=== PATIENT | male | born 1990 | race Two or more races ===

== ENCOUNTER 2023-08-25 20:57 | Emergency (ER) | payer SELFPAY ==
[~2023-08-25] VITALS: Ht 160 cm; Wt 95.0 kg
[2023-08-25 22:26] LABS: Basophils # (auto) 0 10 ^3/uL (0-0.2); Basophils % (auto) 0.5 % (0.0-2.0); Eosinophils # (auto) 0.1 10 ^3/uL (0-0.8); Eosinophils % (auto) 1.6 % (0.0-7.0); Hematocrit 45.8 % (41.0-53.0); Hemoglobin 15.8 g/dL (13.5-17.5); Lymphocytes # (auto) 2.6 10 ^3/uL (0.4-5.4); Lymphocytes % (auto) 30.6 % (10.0-50.0); Mean Corpuscular Hemoglobin 30.9 pg (28.0-32.0); Mean Corpuscular Hgb Conc. 34.5 g/dL (32.0-36.0); Mean Corpuscular Volume 89.6 fL (80.0-100.0); Monocytes # (auto) 0.7 10 ^3/uL (0-1.3); Monocytes % (auto) 8.4 % (0.0-12.0); Neutrophils % (auto) 58.9 % (37.0-80.0); Red Blood Cells 5.12 10^6/uL (4.5-5.90); Red Cell Distribution Width 13.2 % (11.8-14.3); White Blood Cell 8.4 10^3/uL (4.4-10.8)
[2023-08-25 22:42] LABS: Alanine Aminotransferase 74 U/L (7-40); Albumin 4.5 g/dL (3.2-4.8); Alkaline Phosphatase 99 U/L (46-116); Anion Gap 8 (5-15); Aspartate Aminotransferase 52 U/L (13-40); Bilirubin, Total 0.4 mg/dL (0.2-1.0); Blood Urea Nitrogen 10 mg/dL (9-23); Calcium 9.3 mg/dL (8.7-10.4); Carbon Dioxide 23 mmol/L (20-30); Chloride 106 mmol/L (98-107); Glucose 95 mg/dL (74-106); Lipase 56 U/L (12-53); Sodium 137 mmol/L (136-145)
[2023-08-26 02:47] LABS: Urine Bacteria NONE SEEN /hpf (None Seen); Urine Blood Negative /uL (Negative); Urine Clarity Clear (Clear); Urine Color Yellow (Yellow); Urine Protein, UAD Negative (Negative); Urine Specific Gravity 1.021 (1.001-1.035); Urine Urobilinogen Normal (Negative); Urine WBC <1 /hpf (0 - 3); Urine pH 5.5 (5.0-8.0)
[2023-08-26] MEDS ORDERED: SODIENE35 RE (03:16)
[2023-08-26] MEDS ORDERED: PEGSOL11 OR (03:16)
[2023-08-26] MEDS ORDERED: DICY10CA PO (03:16)
[2023-08-26 03:24] VITALS: BP 142/78; PULSE 78; RESP 18; TEMP 98.6; O2SAT 97
== END 2023-08-26 04:06 | disposition home or self-care (01) ==
LOC: ER 20:57
DX: K59.00 Constipation, unspecified (principal); R10.33 Periumbilical pain
CPT/HCPCS: 36415; 74176; 80053; 81001; 83690; 85025

== ENCOUNTER 2023-10-25 19:02 | Emergency (ER) | payer MEDICAID ==
[~2023-10-25] VITALS: Ht 160 cm; Wt 94.2 kg
[~2023-10-25 19:02] MED LIST: DICY10CA PO; PEGSOL11 OR; SODIENE35 RE
[2023-10-25 20:33] VITALS: BP 125/68; PULSE 72; RESP 18; O2SAT 97
[2023-10-25 21:41] LABS: Rapid Influenza A Negative (Negative)
[2023-10-25 21:42] LABS: COVID19 ANTIGEN SOFIA FIA NEGATIVE (NEGATIVE)
[2023-10-25 21:44] LABS: Rapid Influenza B Positive (Negative)
[2023-10-25] MEDS ORDERED: ACET500T58 PO (23:33)
[2023-10-25] MEDS ORDERED: OSEL75CA5 PO (23:33)
== END 2023-10-26 00:13 | disposition home or self-care (01) ==
LOC: ER 19:02
DX: J10.1 Influenza due to other identified influenza virus with other respiratory manifestations (principal); F17.210 Nicotine dependence, cigarettes, uncomplicated; Z20.822 Contact with and (suspected) exposure to COVID-19
CPT/HCPCS: 36415; 87426; 87804

== ENCOUNTER 2024-09-04 19:42 | Emergency (ER) | payer MEDICAID ==
[~2024-09-04] VITALS: Ht 160 cm; Wt 100.0 kg
[~2024-09-04 19:42] MED LIST changes: +ACET500T58 PO; +CLIN1CAP70 PO; +HYDR-4902 PO; +IBUP-1454 PO; +OSEL75CA5 PO
[2024-09-04 20:41] LABS: COVID19 ANTIGEN SOFIA FIA NEGATIVE (NEGATIVE); Rapid Influenza A Negative (Negative)
[2024-09-04 20:44] LABS: Rapid Influenza B Positive (Negative)
[2024-09-04] MEDS ORDERED: ACET500T58 PO (21:39)
[2024-09-04] MEDS ORDERED: PRED20TA2 PO (21:39)
--- NOTE | 2024-09-04 21:39 | ED.PDOC ---
History of Present Illness HPI Comments 34-year-old male presents to ER with complaints of flu-like symptoms x1 day. Patient reports he has been experiencing dry cough, congestion, intermittent body aches, chills and fever x1 day. Denies use of medications for current symptoms. Denies any current pain. Patient presents to ER ambulatory on arriva l, with steady gait, in no distress with vitals stable and notes he did experience one episode of nausea/vomiting today. Denies shortness of breath, chest pain, hemoptysis, sore throat, earache, headache, abdominal pain, known exposure to sick contacts, changes in urination/BM or any further symptoms/complaints Chief Complaint: Flu like Time Seen by MD: 20:44 Primary Care Provider: UNKNOWN Reviewed Notes: Nurses Notes, Medications, Allergies Information Source: Patient Past Medical History PAST MEDICAL HISTORY: Denies Surgical History: Denies all surgeries Family History Family History: Unknown Social History Smoker: Cigarettes, Less Than 1 Pack/Day Alcohol: Denies ETOH Use Drugs: Denies Drug Use Lives In: Home Constitutional: See HPI EENTM: See HPI Respiratory: See HPI Cardiovascular: No Symptoms Reported Gastrointestinal: See HPI Genitourinary: No Symptoms Reported Neurological: No Symptoms Reported Musculoskeletal: No Symptoms Reported Integumentary: No Symptoms Reported Allergic/Immunocompromised: others (UNKNOWN) Hematologic/Lymphatic: No Symptoms Reported Endocrine: No Symptoms Reported Psychiatric: No symptoms Reported Physical Exam General Appearance: No Apparent Distress, Obese HEENT: Normal ENT Inspection, PERRL/EOMI, Pharynx Normal, TMs Normal Neck: Full Range of Motion, Non-Tender, Normal Respiratory: Chest Non-Tender, Lungs Clear, No Accessory Muscle Use, No Respiratory Distress, Normal Breath Sounds Cardiovascular: No Murmur, No Gallop, Regular Rate/Rhythm Breast Exam: Deferred Gastrointestinal: Non Tender, No Pulsatile Mass, Soft Genitalia: Deferred Pelvic: Deferred Rectal: Deferred Extremities: Normal capillary refill, Normal range of motion Neurologic: Alert, business transformation analyst II-XII nml as Tested, No Motor Deficits, Normal Affect, Normal Mood, No Sensory Deficits Cerebellar Function: Normal Reflexes: Normal Skin: Dry, Normal Color, Warm Peripheral Pulses: 2+ Radial (R), 2+ Radial (L), 2+ Brachial (R), 2+ Brachial (L) Lymphatic: No Adenopathy Was a procedure done? Was a procedure done?: No Sedation Sedation?: No Fever Differential Dx Differential Diagnosis: Pneumonia, Sepsis, Pharyngitis, Other (COVID-19) X-Ray, Labs, Meds, VS Vital Signs Date Time Temp Pulse Resp B/P (MAP) Pulse Ox O2 Delivery O2 Flow Rate FiO2 09/04/24 19:57 98.4 99 19 125/79 (94) 96 Lab Test 09/04/24 19:55 Range/Units Influenza Type A Antigen Negative Negative Influenza Type B Antigen Positive Negative SARS-CoV-2 Antigen (Rapid) Negative NEGATIVE INFLUENZA B REVIEWED-POSITIVE INFLUENZA A REVIEWED-NEGATIVE CLIF REVIEWED-NEGATIVE SMOKING CESSATION DISCUSSED AND ADVISED PATIENT TOLERATING P.O. INTAKE WELL AND IN NO DISTRESS DURING ER VISIT/PRIOR TO DISCHARGE DIET EDUCATION DISCUSSED ADVISED TO FOLLOW UP WITH PCP IN 1-2 DAYS PATIENT VERBALIZED UNDERSTANDING AND AGREEABLE WITH CURRENT PLAN OF CARE ADVISED TO RETURN TO ER IMMEDIATELY IF SYMPTOMS WORSEN Time of 1ST Reevaluation: 21:12 Reevaluation 1ST: N/A Patient Education/Counseling: Diagnosis, Treatment, Prognosis, Need For Follow Up Family Education/Counseling: No Family Present Departure 1 Departure Time of Disposition: 21:32 Impression: Primary Impression: Influenza B Disposition: 01 HOME / SELF CARE / HOMELESS Condition: Stable e-Prescriptions Prednisone (Prednisone) 20 Mg Tab 20 MG PO BID for 5 Days, #10 TAB 0 Refills Prov: ZACK GOTTLIEB 09/04/24 Acetaminophen (Acetaminophen) 500 Mg Tab 500 MG PO Q4HPRN, #30 TAB 0 Refills Prov: ZACK GOTTLIEB 09/04/24 Oseltamivir Phosphate (Tamiflu) 75 Mg Cap 1 CAP PO BID for 5 Days, #10 CAP 0 Refills Prov: ZACK GOTTLIEB 09/04/24 Discharged With: Self Critical Care Note Critical Care Time?: No Stability Stability form required: No Heart Score Heart Score: Heart Score Response (Comments) Value History N/A 0 EKG N/A 0 Age N/A 0 Risk Factors N/A 0 Troponin N/A 0 Total 0 ZACK GOTTLIEB Sep 04, 2024 21:39
[2024-09-04 22:42] VITALS: BP 126/65; PULSE 98; RESP 19; TEMP 98; O2SAT 96
== END 2024-09-04 22:52 | disposition home or self-care (01) ==
LOC: ER 19:42
DX: J10.1 Influenza due to other identified influenza virus with other respiratory manifestations (principal); F17.210 Nicotine dependence, cigarettes, uncomplicated; Z20.822 Contact with and (suspected) exposure to COVID-19
CPT/HCPCS: 36415; 87426; 87804

== ENCOUNTER 2025-01-10 11:39 | Inpatient (IN) | payer OTHER, MEDICAID ==
[~2025-01-10] VITALS: Ht 160 cm; Wt 96.7 kg
[~2025-01-10 11:39] MED LIST changes: +PRED20TA2 PO
[2025-01-10 12:21] LABS: Basophils # (auto) 0.1 10 ^3/uL (0-0.2); Basophils % (auto) 0.8 % (0.0-2.0); Eosinophils # (auto) 0.1 10 ^3/uL (0-0.8); Eosinophils % (auto) 1.5 % (0.0-7.0); Hematocrit 48.5 % (41.0-53.0); Hemoglobin 16.9 g/dL (13.5-17.5); Lymphocytes # (auto) 2.2 10 ^3/uL (0.4-5.4); Lymphocytes % (auto) 33.6 % (10.0-50.0); Mean Corpuscular Hemoglobin 31.3 pg (28.0-32.0); Mean Corpuscular Hgb Conc. 34.8 g/dL (32.0-36.0); Mean Corpuscular Volume 89.7 fL (80.0-100.0); Monocytes # (auto) 0.4 10 ^3/uL (0-1.3); Monocytes % (auto) 5.9 % (0.0-12.0); Neutrophils # (auto) 3.8 10 ^3/uL (1.6-8.6); Neutrophils % (auto) 58.2 % (37.0-80.0); Nucleated Red Blood Cells % 0.2 %; Platelet Count (auto) 256 10^3/uL (140-450); Red Cell Distribution Width 13.2 % (11.8-14.3); White Blood Cell 6.5 10^3/uL (4.4-10.8)
--- NOTE | 2025-01-10 12:28 | ED.PDOC ---
GI ASSESSMENT HPI Comments HPI: 34 y/o M, presents to the ED for CC of abdominal pain. Patient states, he has been experiencing intermittent umbilical abdominal pain x2 weeks. Patient relays, pain to be cramping in sensation. Patient denies nausea, vomiting, diarrhea, fever, chills, or body-aches. No other symptoms or modifying factors present at this time. VITALS: Temp: BP: HR: RR: SPO2: Past medical history: DENIES ANY Past surgical history: DENIES ANY HPI: Poor Historian. REVIEW OF SYSTEMS: CONSTITUTIONAL: Denies acute: fever, diaphoresis, chills, generalized weakness. HEAD: Denies acute: headache, photophobia Eyes: Denies acute: Double vision, vision loss, eye pain, eye discharge. EARS: Denies acute: tinnitus, hearing loss, ear discharge, ear pain, THROAT: Denies acute: sore throat, swelling, difficulty swallowing , pain with swallowing, change in voice. NECK: Denies acute: neck pain, neck swelling, stiff neck. HEART: Denies acute : chest pain, palpitations, LUNGS: Denies acute: SOB, wheezing, cough, hemoptysis ABDOMEN: Denies acute: , Nausea, Vomiting, diarrhea, melena , hematemesis, hematochezia SKIN: Denies acute: rash, redness, lesions, itchiness. EXTREMITIES: Denies acute: calf pain, numbness, tingling, weakness, denies pain in extremity. Denies acute: Low back pain. Neuro: Denies acute: focal neurological deficit, motor or sensory focal neurological deficit, tremors, seizure like activity, confusion, dizziness, change in mental status, loss of bowel or bladder function, cauda equina like symptoms. : Denies acute: dysuria, hematuria, flank pain, increase in urinary frequency. PSYCH: Denies acute: hallucination, suicidal ideation, homicidal ideation. PHYSICAL EXAM: General: ---no-----acute distress, awake and alert. Head: normocephalic, atraumatic. Neck: supple, trachea is midline, no swelling. Throat: Normal phonation. Eyes:, no erythema, no purulent discharge, no proptosis, no icterus. Heart: regular rate, regular rhythm, no significant murmur appreciated. Lungs: no apparent respiratory distress, Able to speak in full sentences. No wheezing, no rhonchi, no crackles. No stridors Clear to auscultation bilaterally. Abdomen: Umbilical focal tender to palpation, non distended, soft, no guarding, no rebound, + bowel sounds. Patient has a very small reducible umbilical h ernia. Neuro: Awake, Alert, oriented to name, self, situation, follows commands GCS=15. Speech is normal. Skin: no petechia, no purpura, no cyanosis, non-pale, not jaundice. Lower extremities: --no - Pitting edema no deformity, no focal swelling, no calf TTP. Makes eye contact. moves all four extremities. Face: no apparent facial droop. Ambulating in the ED independently. ED COURSE: Chief Complaint: Abdominal Pain Time Seen by MD: 11:35 Primary Care Provider: UNKNOWN Reviewed Notes: Nurses Notes, Medications, Allergies Allergies: Coded Allergies: NO KNOWN ALLERGIES (Unverified , 08/25/23) Home Meds Active Scripts Prednisone (Prednisone) 20 Mg Tab, 20 MG PO BID for 5 Days, #10 TAB 0 Refills Prov:ZACK GOTTLIEB 09/04/24 Acetaminophen (Acetaminophen) 500 Mg Tab, 500 MG PO Q4HPRN, #30 TAB 0 Refills Prov:ZACK GOTTLIEB 09/04/24 Oseltamivir Phosphate (Tamiflu) 75 Mg Cap, 1 CAP PO BID for 5 Days, #10 CAP 0 Refills Prov:ZACK GOTTLIEB 09/04/24 Ibuprofen (Ibuprofen) 600 Mg Tab, 1 TAB PO Q6HPRN PRN, #20 TAB Prov:ERIC DOE Q CHIL[employer] SERVICE WORKER 01/20/24 Hydrocodone-Acetaminophen (Hydrocodone Bitartrate/AC 5-325 mg) 1 Tab Tab, 1 TAB PO Q6HPRN PRN, #8 TAB Needed for severe pain Prov:ERIC DOE Q CHILDR[employer] SERVICE WORKER 12/05/23 Clindamycin Hcl (Clindamycin Hcl) 300 Mg Cap, 1 CAP PO QID for 10 Days, #40 CAP Prov:ERIC DOE Q CHIL[employer] SERVICE WORKER 12/05/23 Acetaminophen (Acetaminophen) 500 Mg Tab, 500 MG PO Q6HPRN, #30 TAB 0 Refills Prov:ZACK GOTTLIEB 10/25/23 Oseltamivir Phosphate (Tamiflu) 75 Mg Cap, 1 CAP PO BID for 5 Days, #10 CAP 0 Refills Prov:ZACK GOTTLIEB PA 10/25/23 Dicyclomine Hcl (BENTYL CAPSULE) 10 Mg Cp, 2 CAP PO Q8HR, #15 CAP 0 Refills For abdominal cramping Prov:ERIC DOE Q CHIL[employer] SERVICE WORKER 08/26/23 Sodium Phosphates (FLEET ENEMA SIX PACK) Enema Carol, 1 EA RE ONCE, #1 EA 1 fleet enema per rectum only one use Prov:ERIC DOE Q CHIL[employer]S SERVICE WORKER 08/26/23 Peg [id number] Bicarb-Sod Ch (Golytely) Pineappl Trina, 250 ML OR ONCE, #250 ML take as directed Prov:ERIC DOE Q CHIL[employer] SERVICE WORKER 08/26/23 Information Source: Patient Mode of Arrival: Ambulatory Timing: Weeks Duration: Since onset Prehospital treatment: None Quality: Cramping Vomitus: None Stool: Normal Severity: Moderate Recent: None Recent Hx of: None Pain Location: Periumbilical Modifying Factors: Nothing Associated sign and symptoms: None Was a procedure done? Was a procedure done?: No GI differential Dx Differential Diagnosis: Other (DDX include but not limited to diverticulitis, colitis, gastroenteritis, acute abdomen, SBO, enteritis, constipation, volvulus, appendicitis, Gallbladder disease, choledocolithiasis, ascending cholangitis, pancreatitis, intraAbdominal mass/neoplasm, hepatitis, UTI, pylonephritis, kidney stone, aneurysm, dissection, Inflammatory bowel disease, gastroparesis, ischemic bowel.) X-Ray, Labs, Meds, VS Vital Signs Date Time Temp Pulse Resp B/P (MAP) Pulse Ox O2 Delivery O2 Flow Rate FiO2 01/10/25 14:30 97.7 68 18 141/68 (92) 98 97.7 01/10/25 13:07 62 20 96 Room Air* 0 21 01/10/25 13:07 97.7 62 20 115/75 (88) 96 97.7 01/10/25 11:55 98.0 85 20 115/65 (82) 100 98.0 Lab Test 01/10/25 12:52 01/10/25 12:44 01/10/25 12:08 Range/Units Troponin I High Sensitivity < 3 L < 3 L </=54 ng/L Urine Color Yellow Yellow Urine Clarity Clear Clear Urine pH 7.0 5.0-9.0 Urine Specific [place] 1.030 1.001-1.035 Urine Protein Trace H Negative Urine Ketones Negative Negative Urine Blood Negative Negative /uL Urine Nitrite Negative Negative Urine Bilirubin Negative Negative Urine Urobilinogen Normal Negative mg/dL Urine Leukocyte Esterase Negative Negative /uL Urine RBC 2 0 - 3 /hpf Urine Microscopic WBC 1 0-3 /HPF Urine Squamous Epithelial Cells None seen <5 /hpf Urine Bacteria None seen None Seen /hpf Urine Mucus Few None Seen Urine Glucose Normal Normal mg/dL White Blood Count 6.5 4.4-10.8 10^3/uL Red Blood Count 5.40 4.5-5.90 10^6/uL Hemoglobin 16.9 13.5-17.5 g/dL Hematocrit 48.5 41.0-53.0 % Mean Corpuscular Volume 89.7 80.0-100.0 fL Mean Corpuscular Hemoglobin 31.3 28.0-32.0 pg Mean Corpuscular Hemoglobin Concent 34.8 32.0-36.0 g/dL Red Cell Distribution Width 13.2 11.8-14.3 % Platelet Count 256 140-450 10^3/uL Mean Platelet Volume 7.3 6.9-10.8 fL Neutrophils (%) (Auto) 58.2 37.0-80.0 % Lymphocytes (%) (Auto) 33.6 10.0-50.0 % Monocytes (%) (Auto) 5.9 0.0-12.0 % Eosinophils (%) (Auto) 1.5 0.0-7.0 % Basophils (%) (Auto) 0.8 0.0-2.0 % Neutrophils # (Auto) 3.8 1.6-8.6 10 ^3/uL Lymphocytes # (Auto) 2.2 0.4-5.4 10 ^3/uL Monocytes # (Auto) 0.4 0-1.3 10 ^3/uL Eosinophils # (Auto) 0.1 0-0.8 10 ^3/uL Basophils # (Auto) 0.1 0-0.2 10 ^3/uL Nucleated Red Blood Cells 0.2 % Sodium Level 138 136-145 mmol/L Potassium Level 4.4 3.5-5.1 mmol/L Chloride Level 108 H 98-107 mmol/L Carbon Dioxide Level 24 20-31 mmol/L Anion Gap 6 5-15 Blood Urea Nitrogen 14 9-23 mg/dL Creatinine 0.84 0.700-1.30 mg/dL Glomerular Filtration Rate Calc 118 >90 mL/min BUN/Creatinine Ratio 16.7 10.0-20.0 Serum Glucose 79 74-106 mg/dL Lactic Acid Level 1.0 0.4-2.0 mmol/L Calcium Level 9.6 8.7-10.4 mg/dL Total Bilirubin 0.5 0.2-1.0 mg/dL Aspartate Amino Transferase (AST) 24 13-40 U/L Alanine Aminotransferase (ALT) 72 H 7-40 U/L Alkaline Phosphatase 102 46-116 U/L Total Protein 7.5 5.7-8.2 g/dL Albumin 4.7 3.2-4.8 g/dL Lipase 401 H 12-53 U/L Hepatitis B Surface Antibody Pending Hepatitis C Antibody Pending [place] [address] Ph: [phone] DIAGNOSTIC IMAGING Diagnostic Imaging Report : [id number] Signed PATIENT: KEANU GREEN ACCT: [id number] UNIT: [id number] : 1990 LOC: ER ROOM / BED: / AGE / SEX: 34 / M ADM STATUS: REG ER SERVICE 1158 ORDERING PHYSICIAN: LESTER CR DO PROCEDURE(s): ABPL - CT AB PEL WO CON-NO ORAL OR IV REASON: umbilical pain ORDER NUMBER(s): [id number], ACCESSION NUMBER(s): [id number] Exam: CT CT AB PEL WO CON-NO ORAL OR IV History: umbilical pain Comparison Study: CT CT AB PEL WO CON-NO ORAL OR IV on DOS: 08/25/23 Technique: Multidetector spiral CT of the abdomen and pelvis was performed from lung bases to pubic symphysis. Imaging was performed without IV contrast. Axial, coronal and sagittal multiplanar reformats were obtained from the axial data set by the technologist. Radiation dose : Abdomen/Pelvis: CTDIvol 20 mGy, DLP 1060 mGy*cm. Findings: Evaluation of solid organs is limited due to lack of intravenous contrast use. Lung Bases: No acute or significant lung base finding. Normal heart size. No pleural or pericardial effusion. Liver: The liver is normal in size. No focal lesions. Gallbladder and biliary Tree: Unremarkable Spleen: Unremarkable Pancreas: The pancreas is grossly normal in appearance. Adrenal Glands: Unremarkable Kidneys: Kidneys are grossly normal without calculi or hydronephrosis. Bladder: Grossly unremarkable for degree of distention. Bowel: The stomach is grossly normal in appearance. Small bowel and colon are normal in caliber and distribution. Normal appendix is visualized in the right lower quadrant without findings of appendicitis. Ascites: Absent Lymphadenopathy: No mesenteric, retroperitoneal or periportal lymphadenopathy. Abdominal wall and Mesentery: Unremarkable. Vasculature: The visualized abdominal aorta is normal in size and caliber. Evaluation of abdominal and pelvic vessels is limited due to lack of intravenous contrast. Pelvic Organs: Unremarkable Musculoskeletal: No aggressive focal bony lesions, acute fractures or dislocation. IMPRESSION: 1. No acute abdominal or pelvic findings. Radiation optimization: All CT scans at this facility use at least one of these dose optimization techniques: Automated exposure control mA and/or kV adjustment per patient size (includes targeted exams where dose is matched to clinical indication) or iterative reconstruction. HS:Y ATED BY: CAMRON FITCH MD DICTATED DATE/TIME: 01/10/251239 SIGNED BY: CAMRON FITCH MD SIGNED DATE/TIME: 01/10/251239 CC: Time of 1ST Reevaluation: 12:05 Reevaluation 1ST: Unchanged Time of 2ND Reevaluation: 14:07 (The case was discussed with the admitting team (HPI, physical exam, labs and diagnostic tests that were available at the time of disposition, ED course, treatment plan) on the phone. They agreed to admit the patient to their service and assume care of this patient from this point forward. --- Liv) Reevaluation 2ND: Unchanged Patient Education/Counseling: Diagnosis, Treatment Family Education/Counseling: Other Comments Patient presented with the above HPI.---abdominal pain---workup was initiated. patient was found with the above mentioned diagnosis. the following medications were ordered: please refer to order lists of meds and tests obtained by myself Dr. Cr. Patient ED course and VS have been stabilized. Patient has been reassessed in the ED and remained in a stable condition. Pertinent incidental findings were discussed with the patient and/or family. Patient/family voices understanding and is agreeable with plan. Patient has been observed in the ED adequate length of time to insure improvement/stability. Escalation of care considered: Consideration of escalation to observation or admission Patient was ADMITTED to the medicine team for further evaluation and treatment of their presentation. General surgeon Dr. Caballero called later because the admitting team consulted him. I discussed the case with him on the phone. All the reports of any imaging studies that were ordered by myself were reviewed by myself. Departure 1 Departure Time of Disposition: 13:41 Impression: Primary Impression: Acute pancreatitis Additional Impression: Umbilical hernia Disposition: ADMITTED INPATIENT Admit to: Tele Condition: Guarded Additional Instructions: [place] [address] Ph: [phone] DIAGNOSTIC IMAGING Diagnostic Imaging Report : [id number] Signed PATIENT: KEANU GREEN ACCT: [id number] UNIT: [id number] : 1990 LOC: ER ROOM / BED: / AGE / SEX: 34 / M ADM STATUS: REG ER SERVICE 1158 ORDERING PHYSICIAN: LESTER CR DO PROCEDURE(s): ABPL - CT AB PEL WO CON-NO ORAL OR IV REASON: umbilical pain ORDER NUMBER(s): [id number], ACCESSION NUMBER(s): [id number] Exam: CT CT AB PEL WO CON-NO ORAL OR IV History: umbilical pain Comparison Study: CT CT AB PEL WO CON-NO ORAL OR IV on DOS: 08/25/23 Technique: Multidetector spiral CT of the abdomen and pelvis was performed from lung bases to pubic symphysis. Imaging was performed without IV contrast. Axial, coronal and sagittal multiplanar reformats were obtained from the axial data set by the technologist. Radiation dose : Abdomen/Pelvis: CTDIvol 20 mGy, DLP 1060 mGy*cm. Findings: Evaluation of solid organs is limited due to lack of intravenous contrast use. Lung Bases: No acute or significant lung base finding. Normal heart size. No pleural or pericardial effusion. Liver: The liver is normal in size. No focal lesions. Gallbladder and biliary Tree: Unremarkable Spleen: Unremarkable Pancreas: The pancreas is grossly normal in appearance. Adrenal Glands: Unremarkable Kidneys: Kidneys are grossly normal without calculi or hydronephrosis. Bladder: Grossly unremarkable for degree of distention. Bowel: The stomach is grossly normal in appearance. Small bowel and colon are normal in caliber and distribution. Normal appendix is visualized in the right lower quadrant without findings of appendicitis. Ascites: Absent Lymphadenopathy: No mesenteric, retroperitoneal or periportal lymphadenopathy. Abdominal wall and Mesentery: Unremarkable. Vasculature: The visualized abdominal aorta is normal in size and caliber. Evaluation of abdominal and pelvic vessels is limited due to lack of intravenous contrast. Pelvic Organs: Unremarkable Musculoskeletal: No aggressive focal bony lesions, acute fractures or dislocation. IMPRESSION: 1. No acute abdominal or pelvic findings. Radiation optimization: All CT scans at this facility use at least one of these dose optimization techniques: Automated exposure control mA and/or kV adjustment per patient size (includes targeted exams where dose is matched to clinical indication) or iterative reconstruction. HS:Y ATED BY: CAMRON FITCH MD DICTATED DATE/TIME: 01/10/25 1240 SIGNED BY: CAMRON FITCH MD SIGNED DATE/TIME: 01/10/25 1240 CC: Discharged With: Self Critical Care Note Critical Care Time?: No Heart Score Heart Score: Heart Score Response (Comments) Value History N/A 0 EKG N/A 0 Age N/A 0 Risk Factors N/A 0 Troponin N/A 0 Total 0 I personally scribed for LESTER CR DO ([email or web address]) on 01/10/25 at 12:28. El ectronically submitted by Gifty Parra ([email or web address]). I personally scribed for LESTER CR DO ([email or web address]) on 01/10/25 at 13:04. Electro nically submitted by Gifty Parra ([email or web address]). LESTER CR DO Jan 10, 2025 12:28
[2025-01-10 12:41] LABS: Albumin 4.7 g/dL (3.2-4.8); Alkaline Phosphatase 102 U/L (46-116); Anion Gap 6 (5-15); Aspartate Aminotransferase 24 U/L (13-40); BUN/Creatinine Ratio 16.7 (10.0-20.0); Bilirubin, Total 0.5 mg/dL (0.2-1.0); Blood Urea Nitrogen 14 mg/dL (9-23); Calcium 9.6 mg/dL (8.7-10.4); Carbon Dioxide 24 mmol/L (20-31); Glucose 79 mg/dL (74-106); Potassium 4.4 mmol/L (3.5-5.1); Sodium 138 mmol/L (136-145); Total Protein 7.5 g/dL (5.7-8.2)
--- NOTE | 2025-01-10 12:42 | DVH ---
Exam: CT CT AB PEL WO CON-NO ORAL OR IV History: umbilical pain Comparison Study: CT CT AB PEL WO CON-NO ORAL OR IV on DOS: 08/25/23 Technique: Multidetector spiral CT of the abdomen and pelvis was performed from lung bases to pubic symphysis. Imaging was performed without IV contrast. Axial, coronal and sagittal multiplanar reform ats were obtained from the axial data set by the technologist. Radiation dose : Abdomen/Pelvis: CTDIvol 20 mGy, DLP 1060 mGy*cm. Findings: Evaluation of solid organs is limited due to lack of intravenous contrast use. Lung Bases: No acute or significant lung base finding. Normal heart size. No pleural or pericardial effusion. Liver: The liver is normal in size. No focal lesions. Gallbladder and biliary Tree: Unremarkable Spleen: Unremarkable Pancreas: The pancreas is grossly normal in appearance. Adrenal Glands: Unremarkable Kidneys: Kidneys are grossly normal without calculi or hydronephrosis. Bladder: Grossly unremarkable for degree of distention. Bowel: The stomach is grossly normal in appearance. Small bowel and colon are normal in caliber and d istribution. Normal appendix is visualized in the right lower quadrant without findings of appendicit is. Ascites: Absent Lymphadenopathy: No mesenteric, retroperitoneal or periportal lymphadenopathy. Abdominal wall and Mesentery: Unremarkable. Vasculature: The visualized abdominal aorta is normal in size and caliber. Evaluation of abdominal a nd pelvic vessels is limited due to lack of intravenous contrast. Pelvic Organs: Unremarkable Musculoskeletal: No aggressive focal bony lesions, acute fractures or dislocation. IMPRESSION: 1. No acute abdominal or pelvic findings. Radiation optimization: All CT scans at this facility use at least one of these dose optimization nathan hniques: Automated exposure control mA and/or kV adjustment per patient size (includes targeted exams where dose is matched to clinical indication) or iterative reconstruction. HS:Y
[2025-01-10 13:04] LABS: Urine Bacteria None Seen /hpf (None Seen)
[2025-01-10 13:07] VITALS: PULSE 62; RESP 20; O2SAT 96
[2025-01-10 13:22] LABS: Alanine Aminotransferase 72 U/L (7-40); Chloride 108 mmol/L (98-107); Lipase 401 U/L (12-53)
[2025-01-10 13:26] LABS: Urine Blood Negative /uL (Negative); Urine Clarity Clear (Clear); Urine Color Yellow (Yellow); Urine Mucus FEW (None Seen); Urine Protein, UAD TRACE (Negative); Urine Squamous Epithelial Cell None Seen /hpf (<5); Urine Urobilinogen Normal (Negative); Urine WBC 1 /HPF (0-3)
[2025-01-10] MEDS ORDERED: ACETAMINOPHEN 325 MG TAB PO PRN (15:30)
[2025-01-10] MEDS ORDERED: ONDANSETRON HCL 4 MG/2 ML VIAL IV PRN (15:30)
[2025-01-10] MEDS ORDERED: HYDROcodone-ACET 5/325MG TAB PO PRN (15:30)
[2025-01-10] MEDS ORDERED: MORPHINE SULFATE INJ 2 MG/ml SYRG IV PRN (15:30)
--- NOTE | 2025-01-10 15:30 | DVHHP2 ---
History of Present Illness Reason for Visit: Abdominal pain History of Present Illness 34-year-old male with a no significant past medical history initially presented to hospital with the abdominal pain. Patient complaining of umbilical pain as well. Patient's does complaining of nausea but denies any vomiting. In the ER patient was found to have elevated lipase eventually admission was recommended. Patient denies any fevers chills , vomiting diarrhea hematemesis hematochezia melena dysuria hematuria Smoke: No ALCOHOL: none Review of Systems Review of Systems Twelve review of system are negative besides mentioned above. Allergies: Coded Allergies: NO KNOWN ALLERGIES (Unverified , 08/25/23) Medications Current Medications Medications Dose Ordered Sig/Epifanio Route Start Time Stop Time Status Last Admin Dose Admin Sodium Chloride 1,000 ml @ 60 mls/hr [id number] IV 01/10/25 15:30 UNV Acetaminophen/ Hydrocodone Bitart 1 tab Q4HP PRN PO 01/10/25 15:30 UNV Ondansetron HCl 4 mg Q4HP PRN IV 01/10/25 15:30 UNV Acetaminophen 650 mg Q6HP PRN PO 01/10/25 15:30 UNV Morphine Sulfate 2 mg Q4HPRN PRN IV 01/10/25 15:30 UNV Exam Vital Signs Vital Signs Date Time Temp Pulse Resp B/P (MAP) Pulse Ox O2 Delivery O2 Flow Rate FiO2 01/10/25 14:30 97.7 68 18 141/68 (92) 98 97.7 01/10/25 13:07 Room Air* 0 21 Exam HEENT pupils are reactive Neck is supple CV is S1-S2 regular rate and rhythm Respiratory are clear GI positive bowel sound, soft mildly tender in umbilical region no guarding no rigidity. Extremity no edema MANAGER SAS no motor deficit Labs/Xrays Labs Test 01/10/25 12:52 01/10/25 12:44 01/10/25 12:08 Range/Units Troponin I High Sensitivity < 3 L </=54 ng/L Urine Color Yellow Yellow Urine Clarity Clear Clear Urine pH 7.0 5.0-9.0 Urine Specific [place] 1.030 1.001-1.035 Urine Protein Trace H Negative Urine Ketones Negative Negative Urine Blood Negative Negative /uL Urine Nitrite Negative Negative Urine Bilirubin Negative Negative Urine Urobilinogen Normal Negative mg/dL Urine Leukocyte Esterase Negative Negative /uL Urine RBC 2 0 - 3 /hpf Urine Microscopic WBC 1 0-3 /HPF Urine Squamous Epithelial Cells None seen <5 /hpf Urine Bacteria None seen None Seen /hpf Urine Mucus Few None Seen Urine Glucose Normal Normal mg/dL White Blood Count 6.5 4.4-10.8 10^3/uL Red Blood Count 5.40 4.5-5.90 10^6/uL Hemoglobin 16.9 13.5-17.5 g/dL Hematocrit 48.5 41.0-53.0 % Mean Corpuscular Volume 89.7 80.0-100.0 fL Mean Corpuscular Hemoglobin 31.3 28.0-32.0 pg Mean Corpuscular Hemoglobin Concent 34.8 32.0-36.0 g/dL Red Cell Distribution Width 13.2 11.8-14.3 % Platelet Count 256 140-450 10^3/uL Mean Platelet Volume 7.3 6.9-10.8 fL Neutrophils (%) (Auto) 58.2 37.0-80.0 % Lymphocytes (%) (Auto) 33.6 10.0-50.0 % Monocytes (%) (Auto) 5.9 0.0-12.0 % Eosinophils (%) (Auto) 1.5 0.0-7.0 % Basophils (%) (Auto) 0.8 0.0-2.0 % Neutrophils # (Auto) 3.8 1.6-8.6 10 ^3/uL Lymphocytes # (Auto) 2.2 0.4-5.4 10 ^3/uL Monocytes # (Auto) 0.4 0-1.3 10 ^3/uL Eosinophils # (Auto) 0.1 0-0.8 10 ^3/uL Basophils # (Auto) 0.1 0-0.2 10 ^3/uL Nucleated Red Blood Cells 0.2 % Sodium Level 138 136-145 mmol/L Potassium Level 4.4 3.5-5.1 mmol/L Chloride Level 108 H 98-107 mmol/L Carbon Dioxide Level 24 20-31 mmol/L Anion Gap 6 5-15 Blood Urea Nitrogen 14 9-23 mg/dL Creatinine 0.84 0.700-1.30 mg/dL Glomerular Filtration Rate Calc 118 >90 mL/min BUN/Creatinine Ratio 16.7 10.0-20.0 Serum Glucose 79 74-106 mg/dL Lactic Acid Level 1.0 0.4-2.0 mmol/L Calcium Level 9.6 8.7-10.4 mg/dL Total Bilirubin 0.5 0.2-1.0 mg/dL Aspartate Amino Transferase (AST) 24 13-40 U/L Alanine Aminotransferase (ALT) 72 H 7-40 U/L Alkaline Phosphatase 102 46-116 U/L Total Protein 7.5 5.7-8.2 g/dL Albumin 4.7 3.2-4.8 g/dL Lipase 401 H 12-53 U/L Assessment/Plan Assessment/Plan 34-year-old male initially presented to the hospital with the abdominal pain as well as umbilical pain found to have 1. Acute pancreatitis 2. Umbilical pain rule out umbilical hernia 3. Previous history of alcoholism quit 16 months ago -admit to med surge, IV fluids, repeat amylase lipase in a.m. -start clear liquid diet if tolerated -general surgery consultation for possible umbilical hernia. Plan discussed with: Patient My Orders Orders - ELIOT SMALL MD Procedure Category Date Status Time Admit ADMIT 01/10/25 Transmitted 15:21 Code Status CODE 01/10/25 Transmitted 15:21 Sodium Chloride 0.9% PHA 01/10/25 Logged 15:30 Hydrocodone-Acet PHA 01/10/25 Logged 5/325mg Tab ([place] 15:30 Ondansetron Hcl PHA 01/10/25 Logged (Zofran) 15:30 Comprehensive LAB 01/11/25 Verified Metabolic Panel 04:00 Condition: Stable ISELA 01/10/25 In Process 15:21 Acetaminophen Tablet PHA 01/10/25 Logged (Tylenol Tablet) 15:30 Clear Liq Diet DIET 01/10/25 Transmitted Dinner Morphine Sulfate PHA 01/10/25 Logged Injection 15:30 Amylase LAB 01/11/25 Verified 04:00 Lipase LAB 01/11/25 Verified 04:00 Date of Service: Jan 10, 2025 Billing Provider: ELIOT SMALL MD Common Visit Codes: NOT BILLABLE ELIOT SMALL MD Jan 10, 2025 15:30
[2025-01-10] MEDS: SODIUM CHLORIDE 0.9% 1,000 ML IV SCH (17:25)
[2025-01-10 17:47] VITALS: BP 94/58; PULSE 73; RESP 18; TEMP 97.8; O2SAT 100
[2025-01-10 21:00] VITALS: BP 106/55; PULSE 72; RESP 17; TEMP 97.4; O2SAT 99
[2025-01-11 01:00] VITALS: BP 101/54; PULSE 62; RESP 17; TEMP 97.7; O2SAT 95
[2025-01-11 04:59] VITALS: BP 100/50; PULSE 82; RESP 17; TEMP 97.6; O2SAT 97
[2025-01-11 07:02] LABS: Alkaline Phosphatase 93 U/L (46-116); Anion Gap 6 (5-15); Aspartate Aminotransferase 24 U/L (13-40); BUN/Creatinine Ratio 14.6 (10.0-20.0); Bilirubin, Total 0.9 mg/dL (0.2-1.0); Blood Urea Nitrogen 15 mg/dL (9-23); Carbon Dioxide 25 mmol/L (20-31); Glucose 86 mg/dL (74-106); Lipase 40 U/L (12-53); Potassium 4.2 mmol/L (3.5-5.1); Sodium 139 mmol/L (136-145); Total Protein 6.5 g/dL (5.7-8.2)
[2025-01-11 07:04] LABS: Alanine Aminotransferase 67 U/L (7-40); Chloride 108 mmol/L (98-107)
[2025-01-11 09:00] VITALS: BP 101/58; PULSE 81; RESP 18; TEMP 98.7; O2SAT 96
[2025-01-11 11:17] LABS: Hepatitis B Surface Antibody Positive (Negative); Hepatitis C Antibody Positive (Negative)
--- NOTE | 2025-01-11 11:34 | DVHINCON2 ---
Date of service: Jan 11, 2025 Family History: Patient reports no known family medical history. Allergies: Coded Allergies: NO KNOWN ALLERGIES (Unverified , 08/25/23) Home Meds Active Scripts Prednisone (Prednisone) 20 Mg Tab, 20 MG PO BID for 5 Days, #10 TAB 0 Refills Prov:ZACK GOTTLIEB 09/04/24 Acetaminophen (Acetaminophen) 500 Mg Tab, 500 MG PO Q4HPRN, #30 TAB 0 Refills Prov:ZACK GOTTLIEB 09/04/24 Oseltamivir Phosphate (Tamiflu) 75 Mg Cap, 1 CAP PO BID for 5 Days, #10 CAP 0 Refills Prov:ZACK GOTTLIEB 09/04/24 Ibuprofen (Ibuprofen) 600 Mg Tab, 1 TAB PO Q6HPRN PRN, #20 TAB Prov:ERIC DOE WARPING MACHINE OPERATOR 01/20/24 Hydrocodone-Acetaminophen (Hydrocodone Bitartrate/AC 5-325 mg) 1 Tab Tab, 1 TAB PO Q6HPRN PRN, #8 TAB Needed for severe pain Prov:ERIC DOE WARPING MACHINE OPERATOR 12/05/23 Clindamycin Hcl (Clindamycin Hcl) 300 Mg Cap, 1 CAP PO QID for 10 Days, #40 CAP Prov:NADERHENRIQUEBRITTNEY Daugherty WARPING MACHINE OPERATOR 12/05/23 Acetaminophen (Acetaminophen) 500 Mg Tab, 500 MG PO Q6HPRN, #30 TAB 0 Refills Prov:ZACK GOTTLIEB 10/25/23 Oseltamivir Phosphate (Tamiflu) 75 Mg Cap, 1 CAP PO BID for 5 Days, #10 CAP 0 Refills Prov:AZCK GOTTLIEB 10/25/23 Dicyclomine Hcl (BENTYL CAPSULE) 10 Mg Cp, 2 CAP PO Q8HR, #15 CAP 0 Refills For abdominal cramping Prov:NADERHENRIQUEBRITTNEY Daugherty WARPING MACHINE OPERATOR 08/26/23 Sodium Phosphates (FLEET ENEMA SIX PACK) Enema Carol, 1 EA RE ONCE, #1 EA 1 fleet enema per rectum only one use Prov:NADERERIC Willow WARPING MACHINE OPERATOR 08/26/23 Peg [id number] Bicarb-Sod Ch (Golytely) Pineappl Trina, 250 ML OR ONCE, #250 ML take as directed Prov:NADERHENRIQUEBRITTNEY Daugherty WARPING MACHINE OPERATOR 08/26/23 Current Medications Current Medications Medications (Trade) Dose Ordered Sig/Epifanio Route PRN Reason Start Time Stop Time Status Last Admin Sodium Chloride 1,000 ml @ 60 mls/hr [id number] IV 01/10/25 15:30 01/11/25 08:10 Acetaminophen/ Hydrocodone Bitart ([place] 5/325MG Tab) 1 tab Q4HP PRN PO MODERATE PAIN (4-6 PAIN SCALE) 01/10/25 15:30 Ondansetron HCl (Zofran) 4 mg Q4HP PRN IV NAUSEA / VOMITING 01/10/25 15:30 Acetaminophen (Tylenol Tablet) 650 mg Q6HP PRN PO PAIN SCALE 1-3 OR TEMP>100.4 01/10/25 15:30 Morphine Sulfate 2 mg Q4HPRN PRN IV SEVERE PAIN (7-10 PAIN SCALE) 01/10/25 15:30 Vital Signs Vital Signs Date Time Temp Pulse Resp B/P (MAP) Pulse Ox O2 Delivery O2 Flow Rate FiO2 01/11/25 09:00 98.7 81 18 101/58 (72) 96 98.7 01/11/25 07:30 Room Air* 0 21 Labs/Diagnostic Data Labs Test 01/11/25 06:20 01/10/25 12:52 01/10/25 12:44 01/10/25 12:08 Range/Units Sodium Level 139 136-145 mmol/L Potassium Level 4.2 3.5-5.1 mmol/L Chloride Level 108 H 98-107 mmol/L Carbon Dioxide Level 25 20-31 mmol/L Anion Gap 6 5-15 Blood Urea Nitrogen 15 9-23 mg/dL Creatinine 1.03 0.700-1.30 mg/dL Glomerular Filtration Rate Calc 98 >90 mL/min BUN/Creatinine Ratio 14.6 10.0-20.0 Serum Glucose 86 74-106 mg/dL Calcium Level 9.0 8.7-10.4 mg/dL Total Bilirubin 0.9 0.2-1.0 mg/dL Aspartate Amino Transferase (AST) 24 13-40 U/L Alanine Aminotransferase (ALT) 67 H 7-40 U/L Alkaline Phosphatase 93 46-116 U/L Total Protein 6.5 5.7-8.2 g/dL Albumin 4.0 3.2-4.8 g/dL Lipase 40 12-53 U/L Troponin I High Sensitivity < 3 L </=54 ng/L Urine Color Yellow Yellow Urine Clarity Clear Clear Urine pH 7.0 5.0-9.0 Urine Specific [place] 1.030 1.001-1.035 Urine Protein Trace H Negative Urine Ketones Negative Negative Urine Blood Negative Negative /uL Urine Nitrite Negative Negative Urine Bilirubin Negative Negative Urine Urobilinogen Normal Negative mg/dL Urine Leukocyte Esterase Negative Negative /uL Urine RBC 2 0 - 3 /hpf Urine Microscopic WBC 1 0-3 /HPF Urine Squamous Epithelial Cells None seen <5 /hpf Urine Bacteria None seen None Seen /hpf Urine Mucus Few None Seen Urine Glucose Normal Normal mg/dL White Blood Count 6.5 4.4-10.8 10^3/uL Red Blood Count 5.40 4.5-5.90 10^6/uL Hemoglobin 16.9 13.5-17.5 g/dL Hematocrit 48.5 41.0-53.0 % Mean Corpuscular Volume 89.7 80.0-100.0 fL Mean Corpuscular Hemoglobin 31.3 28.0-32.0 pg Mean Corpuscular Hemoglobin Concent 34.8 32.0-36.0 g/dL Red Cell Distribution Width 13.2 11.8-14.3 % Platelet Count 256 140-450 10^3/uL Mean Platelet Volume 7.3 6.9-10.8 fL Neutrophils (%) (Auto) 58.2 37.0-80.0 % Lymphocytes (%) (Auto) 33.6 10.0-50.0 % Monocytes (%) (Auto) 5.9 0.0-12.0 % Eosinophils (%) (Auto) 1.5 0.0-7.0 % Basophils (%) (Auto) 0.8 0.0-2.0 % Neutrophils # (Auto) 3.8 1.6-8.6 10 ^3/uL Lymphocytes # (Auto) 2.2 0.4-5.4 10 ^3/uL Monocytes # (Auto) 0.4 0-1.3 10 ^3/uL Eosinophils # (Auto) 0.1 0-0.8 10 ^3/uL Basophils # (Auto) 0.1 0-0.2 10 ^3/uL Nucleated Red Blood Cells 0.2 % Lactic Acid Level 1.0 0.4-2.0 mmol/L Hepatitis B Surface Antibody Positive H Negative Hepatitis C Antibody Positive *A Negative Assessment [id number] AFEBRILE VSS ABD SOFT NO CLINICAL RADIOLOGIC INCARCERATED STRANGULATED UMBILICAL HERNIA LEFT BREAST MASS CONSIDER SURGERY BASED ON ONGOING EVAL US LEFT BREAST NURSE AT BEDSIDE Plan discussed with: Patient CARRIE LEONG MD Jan 11, 2025 11:34
--- NOTE | 2025-01-11 12:00 | DVHINCON2 ---
DATE OF CONSULTATION: 01/11/2025 HISTORY OF PRESENT ILLNESS: This patient is 34 years old, coming in with abdominal pain and some cramping. He also complained of some pain around the umbilicus. He was also complaining of nausea, but no vomiting. He is constipated and found to have a mildly elevated lipase, suspicious for possible pancreatitis, but the CAT scan is not demonstrating any evidence of pancreatitis and his lipase levels are gone down to normal. No fever or chills. No hematemesis or melena. No bleeding per rectum. PAST MEDICAL HISTORY: No diabetes or hypertension. PAST SURGICAL HISTORY: No significant surgical history. PHYSICAL EXAMINATION: VITAL SIGNS: Afebrile, stable signs. HEENT: With no evidence of pallor, cyanosis, or jaundice. NECK: Supple, nontender with no thyromegaly, lymphadenopathy. CHEST AND LUNGS: Clear. HEART: Within normal limits. ABDOMEN: Soft. He has possibly a small umbilical hernia, but does not appear to be incarcerated or strangulated. CAT scan is negative for that also, and he also has a left breast mass that he has had for a few years and he asked me to examine that location as well. NEUROLOGIC: Not assessed. EXTREMITIES: Unremarkable. CLINICAL IMPRESSION: No acute abdomen issue noted and he does have a left breast mass and the lipase levels are gone down to normal. PLAN: Plan will be to manage him conservatively and consider possible umbilical hernia surgery as indicated based upon ongoing evaluation and also consider left breast mass excision based upon the ultrasound that has been ordered to rule out malignancy, so at this point the plan will be to keep him under close observation and he can be given a clear liquid diet and manage conservatively for now. MD RADHA Morgan/ELLEN TID: [id number] RECEIPT: [id number] cc: Karl Peck MD
[2025-01-11 12:57] VITALS: BP 123/63; PULSE 65; RESP 16; TEMP 97.8; O2SAT 97
--- NOTE | 2025-01-11 13:16 | DVH ---
US OF THE left BREAST INDICATION: left breast small bump TECHNIQUE: Targeted left breast ultrasound was performed. COMPARISON: Prior exam dated: None FINDINGS: Oval isoechoic mass in the superficial soft tissues of the left breast at 9 o'clock may represent a l ipoma versus dense breast tissue. There are benign-appearing lymph nodes in the left axilla. IMPRESSION: Oval isoechoic mass in the superficial soft tissues of the left breast at 9 o'clock may represent a l ipoma versus dense breast tissue. Further evaluation with diagnostic bilateral mammogram on a nonemer gent basis is recommended. ACR Bi Rads Category:Category 0-"INCOMPLETE" (Needs Additional Imaging Evaluation))
--- NOTE | 2025-01-11 14:28 | DVHINCON2 ---
GI Consult Consult Note GI consult note Date of Consultation: 01/11/2025 Chief Complaint: Hepatitis-C Referring Physician: Dr. Peck H&P: 34-year-old male presented with symptoms of abdominal pain Patient complaining of intermittent umbilical abdominal pain for two weeks, cramping in nature, improving pain now Patient also has noticed sharp stabbing pain in his right side of abdomen, on and off No nausea or vomit. No hematemesis History of hepatitis-C, diagnosed five years ago, SP treatment for three months. Unsure of any follow-up testing done Patient denies alcohol use Past Medical History: Hepatitis-C Past Surgical History: None Social History: NO smoking, drinking ETOH and use of illegal drugs. Family History: Noncontributory Review of Systems: Constitutional: no fever, chill, weight loss HEENT: no eye pain, no hearing loss, no oral lesion, no scleral icterus Heart: no chest pain, no chest pressure Lung: no cough, no dyspnea with exertion Abdomen: see HPI Physical exam: General: NAD, AAOX3 Chest: lung queen clear to auscultation Heart: RRR, no murmur Abdomen: non-distended, no tenderness to palpation, +BS Labs: Labs Test 01/11/25 06:20 01/10/25 12:52 01/10/25 12:44 01/10/25 12:08 Range/Units Sodium Level 139 136-145 mmol/L Potassium Level 4.2 3.5-5.1 mmol/L Chloride Level 108 H 98-107 mmol/L Carbon Dioxide Level 25 20-31 mmol/L Anion Gap 6 5-15 Blood Urea Nitrogen 15 9-23 mg/dL Creatinine 1.03 0.700-1.30 mg/dL Glomerular Filtration Rate Calc 98 >90 mL/min BUN/Creatinine Ratio 14.6 10.0-20.0 Serum Glucose 86 74-106 mg/dL Calcium Level 9.0 8.7-10.4 mg/dL Total Bilirubin 0.9 0.2-1.0 mg/dL Aspartate Amino Transferase (AST) 24 13-40 U/L Alanine Aminotransferase (ALT) 67 H 7-40 U/L Alkaline Phosphatase 93 46-116 U/L Total Protein 6.5 5.7-8.2 g/dL Albumin 4.0 3.2-4.8 g/dL Lipase 40 12-53 U/L Troponin I High Sensitivity < 3 L </=54 ng/L Urine Color Yellow Yellow Urine Clarity Clear Clear Urine pH 7.0 5.0-9.0 Urine Specific [place] 1.030 1.001-1.035 Urine Protein Trace H Negative Urine Ketones Negative Negative Urine Blood Negative Negative /uL Urine Nitrite Negative Negative Urine Bilirubin Negative Negative Urine Urobilinogen Normal Negative mg/dL Urine Leukocyte Esterase Negative Negative /uL Urine RBC 2 0 - 3 /hpf Urine Microscopic WBC 1 0-3 /HPF Urine Squamous Epithelial Cells None seen <5 /hpf Urine Bacteria None seen None Seen /hpf Urine Mucus Few None Seen Urine Glucose Normal Normal mg/dL White Blood Count 6.5 4.4-10.8 10^3/uL Red Blood Count 5.40 4.5-5.90 10^6/uL Hemoglobin 16.9 13.5-17.5 g/dL Hematocrit 48.5 41.0-53.0 % Mean Corpuscular Volume 89.7 80.0-100.0 fL Mean Corpuscular Hemoglobin 31.3 28.0-32.0 pg Mean Corpuscular Hemoglobin Concent 34.8 32.0-36.0 g/dL Red Cell Distribution Width 13.2 11.8-14.3 % Platelet Count 256 140-450 10^3/uL Mean Platelet Volume 7.3 6.9-10.8 fL Neutrophils (%) (Auto) 58.2 37.0-80.0 % Lymphocytes (%) (Auto) 33.6 10.0-50.0 % Monocytes (%) (Auto) 5.9 0.0-12.0 % Eosinophils (%) (Auto) 1.5 0.0-7.0 % Basophils (%) (Auto) 0.8 0.0-2.0 % Neutrophils # (Auto) 3.8 1.6-8.6 10 ^3/uL Lymphocytes # (Auto) 2.2 0.4-5.4 10 ^3/uL Monocytes # (Auto) 0.4 0-1.3 10 ^3/uL Eosinophils # (Auto) 0.1 0-0.8 10 ^3/uL Basophils # (Auto) 0.1 0-0.2 10 ^3/uL Nucleated Red Blood Cells 0.2 % Lactic Acid Level 1.0 0.4-2.0 mmol/L Hepatitis B Surface Antibody Positive H Negative Hepatitis C Antibody Positive *A Negative Imaging: CT abdomen pelvis IMPRESSION: 1. No acute abdominal or pelvic findings. Breast ultrasound IMPRESSION: Oval isoechoic mass in the superficial soft tissues of the left breast at 9 o'clock may represent a lipoma versus dense breast tissue. Further evaluation with diagnostic bilateral mammogram on a nonemergent basis is recommended. Assessment: Abdominal pain improving Pancreatitis improving Hepatitis-C history Plan: Discussed with Dr. Caballero Monitor labs Advance diet as tolerated Outpatient GI follow-up in six weeks recommended Discussed plan with patient, RN and hospitalist Thank you for this consult Date of Service: Jan 11, 2025 Billing Provider: ESTEBAN HAJI Common Visit Codes: CONSULT ONLY Consultation Codes: [id number] CONSULT <45MIN ESTEBAN HAJI Jan 11, 2025 14:28
--- NOTE | 2025-01-11 15:30 | DVHDS2 ---
Discharge Summary Date of Admission Jan 10, 2025 at 15:21 Date of Discharge: Jan 11, 2025 Labs/Diagnostic Data: Laboratory Results Test 01/11/25 06:20 01/10/25 12:52 01/10/25 12:44 01/10/25 12:08 Sodium Level 139 mmol/L (136-145) Potassium Level 4.2 mmol/L (3.5-5.1) Chloride Level 108 mmol/L (98-107) Carbon Dioxide Level 25 mmol/L (20-31) Anion Gap 6 (5-15) Blood Urea Nitrogen 15 mg/dL (9-23) Creatinine 1.03 mg/dL (0.700-1.30) Glomerular Filtration Rate Calc 98 mL/min (>90) BUN/Creatinine Ratio 14.6 (10.0-20.0) Serum Glucose 86 mg/dL (74-106) Calcium Level 9.0 mg/dL (8.7-10.4) Total Bilirubin 0.9 mg/dL (0.2-1.0) Aspartate Amino Transferase (AST) 24 U/L (13-40) Alanine Aminotransferase (ALT) 67 U/L (7-40) Alkaline Phosphatase 93 U/L (46-116) Total Protein 6.5 g/dL (5.7-8.2) Albumin 4.0 g/dL (3.2-4.8) Lipase 40 U/L (12-53) Troponin I High Sensitivity < 3 ng/L (</=54) Urine Color Yellow (Yellow) Urine Clarity Clear (Clear) Urine pH 7.0 (5.0-9.0) Urine Specific [place] 1.030 (1.001-1.035) Urine Protein Trace (Negative) Urine Ketones Negative (Negative) Urine Blood Negative /uL (Negative) Urine Nitrite Negative (Negative) Urine Bilirubin Negative (Negative) Urine Urobilinogen Normal mg/dL (Negative) Urine Leukocyte Esterase Negative /uL (Negative) Urine RBC 2 /hpf (0 - 3) Urine Microscopic WBC 1 /HPF (0-3) Urine Squamous Epithelial Cells None seen /hpf (<5) Urine Bacteria None seen /hpf (None Seen) Urine Mucus Few (None Seen) Urine Glucose Normal mg/dL (Normal) White Blood Count 6.5 10^3/uL (4.4-10.8) Red Blood Count 5.40 10^6/uL (4.5-5.90) Hemoglobin 16.9 g/dL (13.5-17.5) Hematocrit 48.5 % (41.0-53.0) Mean Corpuscular Volume 89.7 fL (80.0-100.0) Mean Corpuscular Hemoglobin 31.3 pg (28.0-32.0) Mean Corpuscular Hemoglobin Concent 34.8 g/dL (32.0-36.0) Red Cell Distribution Width 13.2 % (11.8-14.3) Platelet Count 256 10^3/uL (140-450) Mean Platelet Volume 7.3 fL (6.9-10.8) Neutrophils (%) (Auto) 58.2 % (37.0-80.0) Lymphocytes (%) (Auto) 33.6 % (10.0-50.0) Monocytes (%) (Auto) 5.9 % (0.0-12.0) Eosinophils (%) (Auto) 1.5 % (0.0-7.0) Basophils (%) (Auto) 0.8 % (0.0-2.0) Neutrophils # (Auto) 3.8 10 ^3/uL (1.6-8.6) Lymphocytes # (Auto) 2.2 10 ^3/uL (0.4-5.4) Monocytes # (Auto) 0.4 10 ^3/uL (0-1.3) Eosinophils # (Auto) 0.1 10 ^3/uL (0-0.8) Basophils # (Auto) 0.1 10 ^3/uL (0-0.2) Nucleated Red Blood Cells 0.2 % Lactic Acid Level 1.0 mmol/L (0.4-2.0) Hepatitis B Surface Antibody Positive (Negative) Hepatitis C Antibody Positive (Negative) Other Laboratory Tests 01/11/25 06:20 01/10/25 12:08 Brief Hx & Hospital Course: 34-year-old male with a known history of chronic hepatitis-C status post treatment in the past, previous history of alcoholism quit suction months ago presented to the hospital with the abdominal pain found to have acute pancreatitis. Patient was seen by GI and General surgery. Patient was found to have incidental finding of left breast mass in the medial side of the left breast, General surgery has recommended excision no biopsy as an outpatient. Patient currently understand and agreeable to plan. Patient needs to follow up with Dr. Rito Caballero in 1-2 weeks. Also patient needs to follow up with GI as an outpatient for hepatitis-C titer. Condition at Discharge: Stable Final Diagnosis/Problems List 1. Acute pancreatitis, resolved 2. History of hepatitis-C status post treatment, outpatient follow up with GI for hep C titer 3. Left breast mass rule out malignancy, outpatient follow up with Dr. Benoit over in 1-2 weeks 4. Previous history of chronic alcoholism quit 16 months ago Discharge Disposition: Home SNF Discharge Will this Physician continue t: No Discharge Instruct/Medications Diet: Regular Activity: No Restrictions, As Tolerated Follow Up/Referral: Follow up with PCP in 1-2 weeks Follow up with Dr. Wilfredo Caballero in 1-2 weeks Medications: Resume home medication if any. Discharge Statement: "Patient was advised to return to the ER or call 911 if any headaches, dizziness, shortness of breath, chest pain, abdominal pain, bleeding, fevers, or worsening of medical condition. Patient was counseled about treatment plan, medications, possible side effects, patientverbalized understanding. All questions were answered to the best of my ability. This discharge took greater then 30 minutes in planning, reviewing documentation, counseling the patient, and discussing with other team members." ASSESSMENT ASSESSMENT Assessment 1. Acute pancreatitis, resolved 2. History of hepatitis-C status post treatment, outpatient follow up with GI for hep C titer 3. Left breast mass rule out malignancy, outpatient follow up with Dr. Cy rebolledo in 1-2 weeks 4. Previous history of chronic alcoholism quit 16 months ago Date of Service: Jan 11, 2025 Billing Provider: ELIOT SMALL MD Common Visit Codes: NOT BILLABLE ELIOT SMALL MD Jan 11, 2025 15:30
== END 2025-01-11 16:40 | disposition home or self-care (01) | DRG 440 ==
LOC: ER 11:41 → OVERFLOW 15:21 → CENTRAL 17:30
PROVIDERS: ADMIT Internal Medicine; ATTEND Internal Medicine
DX: K85.90 Acute pancreatitis without necrosis or infection, unspecified (principal); K42.9 Umbilical hernia without obstruction or gangrene; C50.922 Malignant neoplasm of unspecified site of left male breast; K59.00 Constipation, unspecified; Z86.19 Personal history of other infectious and parasitic diseases; Z79.899 Other long term (current) drug therapy
CPT/HCPCS: 36415; 74176; 76642; 80053; 81001; 82150; 83605; 83690; 84484; 85025; 86706; 86803; G0378

== ENCOUNTER 2025-01-13 11:25 | Emergency (ER) | payer OTHER, MEDICAID ==
[~2025-01-13] VITALS: Ht 160 cm; Wt 96.0 kg
--- NOTE | 2025-01-13 11:42 | ED.PDOC ---
GI ASSESSMENT HPI Comments 34y M who presents to the ED for chief complaint of abdominal pain. - Pt states he has been having periumbilical/epigastric abdominal pain for the past two weeks days. Pt states the pain is constant, burning in nature, with no associated exacerbating or relieving factors. -Patient denies nausea, vomiting, diarrhea, fever, chills, or body-aches, headache, dizziness, - Pt was here at 2 days prior and admitted and recently discharged with the following discharge summary: - 34-year-old male with a known history of chronic hepatitis-C status post treatment in the past, previous history of alcoholism quit months ago presented to the hospital with the abdominal pain found to have acute pancreatitis. Patient was seen by GI and General surgery. Patient was found to have incidental finding of left breast mass in the medial side of the left breast, General surgery has recommended excision no biopsy as an outpatient. Patient currently understand and agreeable to plan. Patient needs to follow up with Dr. Rito Caballero in 1-2 weeks. Also patient needs to follow up with GI as an outpatient for hepatitis-C titer. - Pt states he came back to the ED today due to recurrence of symptoms Past medical history: denies past surgical history: denies Medications: denies Allergies: nkda Social history: denies ETOH, denies tobacco use, denies drug use HPI: Poor Historian. REVIEW OF SYSTEMS: CONSTITUTIONAL: Denies acute: fever, diaphoresis, chills, generalized weakness. HEAD: Denies acute: headache, photophobia Eyes: Denies acute: Double vision, vision loss, eye pain, eye discharge. EARS: Denies acute: tinnitus, hearing loss, ear discharge, ear pain, THROAT: Denies acute: sore throat, swelling, difficulty swallowing , pain with swallowing, change in voice. NECK: Denies acute: neck pain, neck swelling, stiff neck. HEART: Denies acute : chest pain, palpitations, LUNGS: Denies acute: SOB, wheezing, cough, hemoptysis ABDOMEN: Denies acute: Nausea, Vomiting, diarrhea, melena , hematemesis, hematochezia SKIN: Denies acute: rash, redness, lesions, itchiness. EXTREMITIES: Denies acute: calf pain, numbness, tingling, weakness, denies pain in extremity. Denies acute: Low back pain. Neuro: Denies acute: focal neurological deficit, motor or sensory focal neurological deficit, tremors, seizure like activity, confusion, dizziness, change in mental status, loss of bowel or bladder function, cauda equina like symptoms. : Denies acute: dysuria, hematuria, flank pain, increase in urinary frequency. PSYCH: Denies acute: hallucination, suicidal ideation, homicidal ideation. PHYSICAL EXAM: General: ----mild----acute distress, awake and alert. Head: normocephalic, atraumatic. Neck: supple, trachea is midline, no swelling. Throat: Normal phonation. Eyes:, no erythema, no purulent discharge, no proptosis, no icterus. Heart: regular rate, regular rhythm, no significant murmur appreciated. Lungs: no apparent respiratory distress, Able to speak in full sentences. No wheezing, no rhonchi, no crackles. No stridors Clear to auscultation bilaterally. Abdomen: Periumbilical tender to palpation, non distended, soft, no guarding, no rebound, + bowel sounds. Patient states having some burning sensation above his umbilicus and some discomfort below his umbilicus as well. Neuro: Awake, Alert, oriented to name, self, situation, follows commands GCS=15. Speech is normal. Skin: no petechia, no purpura, no cyanosis, non-pale, not jaundice. Lower extremities: --no - Pitting edema no deformity, no focal swelling, no calf TTP. Makes eye contact. moves all four extremities. Face: no apparent facial droop. Ambulating in the ED independently. ED COURSE: Time Seen by MD: 11:41 Primary Care Provider: UNKNOWN Reviewed Notes: Nurses Notes, Medications, Allergies Allergies: Coded Allergies: NO KNOWN ALLERGIES (Unverified , 08/25/23) Home Meds Discontinued Scripts Prednisone (Prednisone) 20 Mg Tab, 20 MG PO BID for 5 Days, #10 TAB 0 Refills Prov:ZCAK GOTTLIEB 09/04/24 Acetaminophen (Acetaminophen) 500 Mg Tab, 500 MG PO Q4HPRN, #30 TAB 0 Refills Prov:ZACK GOTTLIEB 09/04/24 Oseltamivir Phosphate (Tamiflu) 75 Mg Cap, 1 CAP PO BID for 5 Days, #10 CAP 0 Refills Prov:ZACK GOTTLIEB 09/04/24 Ibuprofen (Ibuprofen) 600 Mg Tab, 1 TAB PO Q6HPRN PRN, #20 TAB Prov:ERIC DOE Q SENIOR TECHNICAL WRITER 01/20/24 Hydrocodone-Acetaminophen (Hydrocodone Bitartrate/AC 5-325 mg) 1 Tab Tab, 1 TAB PO Q6HPRN PRN, #8 TAB Needed for severe pain Prov:NADERERIC Q SENIOR TECHNICAL WRITER 12/05/23 Clindamycin Hcl (Clindamycin Hcl) 300 Mg Cap, 1 CAP PO QID for 10 Days, #40 CAP Prov:NADERERIC Willow SENIOR TECHNICAL WRITER 12/05/23 Acetaminophen (Acetaminophen) 500 Mg Tab, 500 MG PO Q6HPRN, #30 TAB 0 Refills Prov:ZACK GOTTLIEB 10/25/23 Oseltamivir Phosphate (Tamiflu) 75 Mg Cap, 1 CAP PO BID for 5 Days, #10 CAP 0 Refills Prov:ZACK GOTTLIEB 10/25/23 Dicyclomine Hcl (BENTYL CAPSULE) 10 Mg Cp, 2 CAP PO Q8HR, #15 CAP 0 Refills For abdominal cramping Prov:NADERERIC Daugherty SENIOR TECHNICAL WRITER 08/26/23 Sodium Phosphates (FLEET ENEMA SIX PACK) Enema Carol, 1 EA RE ONCE, #1 EA 1 fleet enema per rectum only one use Prov:DOEERIC SENIOR TECHNICAL WRITER 08/26/23 Peg 5196-Llb-Pgc Bicarb-Sod Ch (Golytely) Pineappl Trina, 250 ML OR ONCE, #250 ML take as directed Prov:ERIC DOE Q SENIOR TECHNICAL WRITER 08/26/23 Information Source: Patient Mode of Arrival: Ambulatory Past Medical History PAST MEDICAL HISTORY: Denies Surgical History: Denies all surgeries Family History Family History: Unknown Social History Smoker: Cigarettes, Less Than 1 Pack/Day Alcohol: Denies ETOH Use Drugs: Denies Drug Use Lives In: Home Was a procedure done? Was a procedure done?: No GI differential Dx Differential Diagnosis: Other (DDX include but not limited to diverticulitis, colitis, gastroenteritis, acute abdomen, SBO, enteritis, constipation, volvulus, appendicitis, Gallbladder disease, choledocolithiasis, ascending cholangitis, pancreatitis, intraAbdominal mass/neoplasm, hepatitis, UTI, pylonephritis, kidney stone, aneurysm, dissection, Inflammatory bowel disease, gastroparesis, ischemic bowel.) X-Ray, Labs, Meds, VS Vital Signs Date Time Temp Pulse Resp B/P (MAP) Pulse Ox O2 Delivery O2 Flow Rate FiO2 01/13/25 12:07 66 01/13/25 11:59 98.0 74 19 104/60 (75) 96 98.0 01/13/25 11:59 74 19 96 Room Air* 0 21 01/13/25 11:30 98.7 78 18 114/70 (85) 96 98.7 Lab Test 01/13/25 12:43 01/13/25 12:25 01/13/25 11:42 Range/Units Troponin I High Sensitivity < 3 L < 3 L </=54 ng/L Urine Color Yellow Yellow Urine Clarity Clear Clear Urine pH 6.0 5.0-9.0 Urine Specific Romeo 1.031 1.001-1.035 Urine Protein Negative Negative Urine Ketones Negative Negative Urine Blood Negative Negative /uL Urine Nitrite Negative Negative Urine Bilirubin Negative Negative Urine Urobilinogen Normal Negative mg/dL Urine Leukocyte Esterase Negative Negative /uL Urine RBC None seen 0 - 3 /hpf Urine Microscopic WBC 1 0-3 /HPF Urine Squamous Epithelial Cells None seen <5 /hpf Urine Bacteria None seen None Seen /hpf Urine Mucus Few None Seen Urine Glucose Normal Normal mg/dL White Blood Count 7.1 4.4-10.8 10^3/uL Red Blood Count 5.42 4.5-5.90 10^6/uL Hemoglobin 16.7 13.5-17.5 g/dL Hematocrit 48.5 41.0-53.0 % Mean Corpuscular Volume 89.4 80.0-100.0 fL Mean Corpuscular Hemoglobin 30.8 28.0-32.0 pg Mean Corpuscular Hemoglobin Concent 34.5 32.0-36.0 g/dL Red Cell Distribution Width 13.3 11.8-14.3 % Platelet Count 253 140-450 10^3/uL Mean Platelet Volume 7.5 6.9-10.8 fL Neutrophils (%) (Auto) 55.6 37.0-80.0 % Lymphocytes (%) (Auto) 32.7 10.0-50.0 % Monocytes (%) (Auto) 8.2 0.0-12.0 % Eosinophils (%) (Auto) 3.1 0.0-7.0 % Basophils (%) (Auto) 0.4 0.0-2.0 % Neutrophils # (Auto) 4.0 1.6-8.6 10 ^3/uL Lymphocytes # (Auto) 2.3 0.4-5.4 10 ^3/uL Monocytes # (Auto) 0.6 0-1.3 10 ^3/uL Eosinophils # (Auto) 0.2 0-0.8 10 ^3/uL Basophils # (Auto) 0 0-0.2 10 ^3/uL Nucleated Red Blood Cells 0.1 % Sodium Level 137 136-145 mmol/L Potassium Level 4.3 3.5-5.1 mmol/L Chloride Level 105 98-107 mmol/L Carbon Dioxide Level 24 20-31 mmol/L Anion Gap 8 5-15 Blood Urea Nitrogen 18 9-23 mg/dL Creatinine 0.98 0.700-1.30 mg/dL Glomerular Filtration Rate Calc 104 >90 mL/min BUN/Creatinine Ratio 18.4 10.0-20.0 Serum Glucose 89 74-106 mg/dL Lactic Acid Level 1.4 0.4-2.0 mmol/L Calcium Level 9.8 8.7-10.4 mg/dL Total Bilirubin 0.5 0.2-1.0 mg/dL Aspartate Amino Transferase (AST) 25 13-40 U/L Alanine Aminotransferase (ALT) 73 H 7-40 U/L Alkaline Phosphatase 104 46-116 U/L Total Protein 7.1 5.7-8.2 g/dL Albumin 4.7 3.2-4.8 g/dL Lipase 66 H 12-53 U/L [facility] [address] [facility] [address] Ph: [phone] DIAGNOSTIC IMAGING Diagnostic Imaging Report : [id number] Signed PATIENT: KEANU GREEN ACCT: [id number] UNIT: [id number] : 1990 LOC: ER ROOM / BED: / AGE / SEX: 34 / M ADM STATUS: REG ER SERVICE 1130 ORDERING PHYSICIAN: LESTER CR DO PROCEDURE(s): ABPLIV - CT AB PEL WITH IV CON ONLY REASON: abd pain ORDER NUMBER(s): [id number], ACCESSION NUMBER(s): [id number] Exam: CT CT AB PEL WITH IV CON ONLY History: abd pain COMPARISON: CT abdomen/ pelvis 01/10/2025 Technique: Multidetector spiral CT of the abdomen and pelvis was performed from lung bases to pubic symphysis. Intravenous contrast was administered during this examination. Portal venous imaging was obtained. Axial, coronal and sagittal multiplanar reformats were performed by the technologist on a separate workstation. Radiation Dose : 1. Abdomen/Pelvis: CTDIvol 16.05mGy, DLP 781.7 mGy*cm. CONTRAST: 100 mL Omnipaque 300 Findings: Lung Bases: No acute or significant lung base finding. Normal heart size. No pleural or pericardial effusion. Liver: The liver is normal in size. No focal lesions. Normal hepatic vascular enhancement. Gallbladder and Biliary Tree: Unremarkable Spleen: Unremarkable Pancreas: The pancreas is normal in appearance without focal lesions or abnormal enhancement. Adrenal Glands: Unremarkable Kidneys: No hydronephrosis. Bladder: Unremarkable Bowel: The stomach is grossly normal in appearance. Small bowel and colon are normal in caliber and distribution. Normal appendix is visualized in the right lower quadrant without findings of appendicitis. Ascites: Absent Lymphadenopathy: No mesenteric, retroperitoneal or periportal lymphadenopathy. Abdominal Wall and Mesentery: Small dermal patch over the right abdomen with minimal underlying subcutaneous stranding. Vasculature: The visualized abdominal aorta is normal in size and caliber. Abdominal and pelvic vessels demonstrate normal enhancement. Pelvic Organs: Unremarkable Musculoskeletal: Mild lumbar levocurvature. No evidence of acute osseous abnormalities. IMPRESSION: No acute abdominal or pelvic findings. Radiation optimization: All CT scans at this facility use at least one of these dose optimization techniques: automated exposure control mA and/or kV adjustment per patient size (includes targeted exams where dose is matched to clinical indication) or iterative reconstruction. ATED BY: HOLLY DIAZ DO DICTATED DATE/TIME: 01/13/25 1340 SIGNED BY: HOLLY DIAZ DO SIGNED DATE/TIME: 01/13/25 1340 CC: Time of 1ST Reevaluation: 14:53 Reevaluation 1ST: Improved Patient Education/Counseling: Diagnosis, Treatment Family Education/Counseling: No Family Present Comments Patient presented with the above HPI.---abdominal pain---workup was initiated. patient was found with the above mentioned diagnosis. the following medications were ordered: please refer to order lists of meds and tests obtained by myself Dr. Cr. Patient ED course and VS have been stabilized. Patient has been reassessed in the ED and remained in a stable condition. Pertinent incidental findings were discussed with the patient and/or family. Patient/family voices understanding and is agreeable with plan. Patient has been observed in the ED adequate length of time to insure improvement/stability. Escalation of care considered: Consideration of escalation to observation or admission Patient was seen here few days ago and worked up for the same symptoms and was seen by specialists. Patient workup today has been unremarkable. His lipase level has significantly improved from his last visit. Patient was DISCHARGED home in a stable condition. All the reports of any imaging studies that were ordered by myself were reviewed by myself. Departure 1 Departure Time of Disposition: 11:53 Impression: Primary Impression: Abdominal pain Disposition: 01 HOME / SELF CARE / HOMELESS Condition: Stable Additional Instructions: Additional discharge instructions: You MUST follow-up with your primary care/family doctor in 1 to 2 days. If you are unable to see your primary care/family doctor, please return to our emergency room for re-assessment and re-evaluation in 1 to 2 days. Return to the emergency room here in our facility or to the nearest ER [facility] if your symptoms change or worsen. CONSULTATIONS: you MUST Follow-up for consultation as soon as possible with: -gastroenterology and general surgery in 1-2 days. Please call for appointment. You MUST call the consultants office yourself to make an appointment. You may need to arrange that through your insurance and/or your primary/family doctor. If you are unable to see the library sales consultant in 1 to 2 days, you must return to our emergency room (or any other ER of your choice) for re-assessment and re- evaluation. Adequate fluid hydration. Absolutely no heavy lifting. Continue wearing an abdominal binder as ins tructed. Avoid fatty greasy spicy food. Avoid caffeinated products. Avoid NSAIDs. Below is a copy of your radiological report for follow up: [address] [address] Ph: [phone] DIAGNOSTIC IMAGING Diagnostic Imaging Report : [id number] Signed PATIENT: KEANU GREEN ACCT: [id number] UNIT: [id number] : 1990 LOC: ER ROOM / BED: / AGE / SEX: 34 / M ADM STATUS: REG ER SERVICE 1130 ORDERING PHYSICIAN: LESTER CR DO PROCEDURE(s): ABPLIV - CT AB PEL WITH IV CON ONLY REASON: abd pain ORDER NUMBER(s): [id number], ACCESSION NUMBER(s): [id number] Exam: CT CT AB PEL WITH IV CON ONLY History: abd pain COMPARISON: CT abdomen/ pelvis 01/10/2025 Technique: Multidetector spiral CT of the abdomen and pelvis was performed from lung bases to pubic symphysis. Intravenous contrast was administered during this examination. Portal venous imaging was obtained. Axial, coronal and sagittal multiplanar reformats were performed by the technologist on a separate workstation. Radiation Dose : 1. Abdomen/Pelvis: CTDIvol 16.05mGy, DLP 781.7 mGy*cm. CONTRAST: 100 mL Omnipaque 300 Findings: Lung Bases: No acute or significant lung base finding. Normal heart size. No pleural or pericardial effusion. Liver: The liver is normal in size. No focal lesions. Normal hepatic vascular enhancement. Gallbladder and Biliary Tree: Unremarkable Spleen: Unremarkable Pancreas: The pancreas is normal in appearance without focal lesions or abnormal enhancement. Adrenal Glands: Unremarkable Kidneys: No hydronephrosis. Bladder: Unremarkable Bowel: The stomach is grossly normal in appearance. Small bowel and colon are normal in caliber and distribution. Normal appendix is visualized in the right lower quadrant without findings of appendicitis. Ascites: Absent Lymphadenopathy: No mesenteric, retroperitoneal or periportal lymphadenopathy. Abdominal Wall and Mesentery: Small dermal patch over the right abdomen with minimal underlying subcutaneous stranding. Vasculature: The visualized abdominal aorta is normal in size and caliber. Abdominal and pelvic vessels demonstrate normal enhancement. Pelvic Organs: Unremarkable Musculoskeletal: Mild lumbar levocurvature. No evidence of acute osseous abnormalities. IMPRESSION: No acute abdominal or pelvic findings. Radiation optimization: All CT scans at this facility use at least one of these dose optimization techniques: automated exposure control mA and/or kV adjustment per patient size (includes targeted exams where dose is matched to clinical indication) or iterative reconstruction. ATED BY: HOLLY DIAZ DO DICTATED DATE/TIME: 01/13/25 134 SIGNED BY: HOLLY DIAZ DO SIGNED DATE/TIME: 01/13/25 134 CC: e-Prescriptions No Active Prescriptions or Reported Meds Discharged With: Self Critical Care Note Critical Care Time?: No I personally scribed for LESTER CR DO ([email or web address]) on 01/13/25 at 11:42. Electronically submitted by Marsha Toussaint ([email or web address]). I personally scribed for LESTER CR DO ([email or web address]) on 01/13/25 at 14:12. Electronically submitted by Marsha Toussaint ([email or web address]). LESTER CR DO Jan 13, 2025 11:42
[2025-01-13 11:59] VITALS: PULSE 74; RESP 19; O2SAT 96
[2025-01-13 12:09] LABS: Basophils # (auto) 0 10 ^3/uL (0-0.2); Basophils % (auto) 0.4 % (0.0-2.0); Eosinophils # (auto) 0.2 10 ^3/uL (0-0.8); Eosinophils % (auto) 3.1 % (0.0-7.0); Hematocrit 48.5 % (41.0-53.0); Hemoglobin 16.7 g/dL (13.5-17.5); Lymphocytes # (auto) 2.3 10 ^3/uL (0.4-5.4); Lymphocytes % (auto) 32.7 % (10.0-50.0); Mean Corpuscular Hemoglobin 30.8 pg (28.0-32.0); Mean Corpuscular Hgb Conc. 34.5 g/dL (32.0-36.0); Mean Corpuscular Volume 89.4 fL (80.0-100.0); Monocytes # (auto) 0.6 10 ^3/uL (0-1.3); Monocytes % (auto) 8.2 % (0.0-12.0); Neutrophils % (auto) 55.6 % (37.0-80.0); Nucleated Red Blood Cells % 0.1 %; Platelet Count (auto) 253 10^3/uL (140-450); Red Blood Cells 5.42 10^6/uL (4.5-5.90); Red Cell Distribution Width 13.3 % (11.8-14.3); White Blood Cell 7.1 10^3/uL (4.4-10.8)
[2025-01-13 12:19] LABS: Albumin 4.7 g/dL (3.2-4.8); Alkaline Phosphatase 104 U/L (46-116); Anion Gap 8 (5-15); Aspartate Aminotransferase 25 U/L (13-40); BUN/Creatinine Ratio 18.4 (10.0-20.0); Bilirubin, Total 0.5 mg/dL (0.2-1.0); Blood Urea Nitrogen 18 mg/dL (9-23); Calcium 9.8 mg/dL (8.7-10.4); Carbon Dioxide 24 mmol/L (20-31); Chloride 105 mmol/L (98-107); Glucose 89 mg/dL (74-106); Potassium 4.3 mmol/L (3.5-5.1); Sodium 137 mmol/L (136-145); Total Protein 7.1 g/dL (5.7-8.2)
[2025-01-13 12:28] LABS: Urine Bacteria None Seen /hpf (None Seen)
[2025-01-13 12:29] LABS: Alanine Aminotransferase 73 U/L (7-40)
[2025-01-13 12:41] LABS: Urine Blood Negative /uL (Negative); Urine Clarity Clear (Clear); Urine Color Yellow (Yellow); Urine Mucus FEW (None Seen); Urine Protein, UAD Negative (Negative); Urine Specific Gravity 1.031 (1.001-1.035); Urine Squamous Epithelial Cell None Seen /hpf (<5); Urine Urobilinogen Normal (Negative); Urine WBC 1 /HPF (0-3)
[2025-01-13] MEDS: IOHEXOL 300 MG/ML 100ML BOTTLE IJ ONE (12:46)
--- NOTE | 2025-01-13 13:43 | DVH ---
Exam: CT CT AB PEL WITH IV CON ONLY History: abd pain COMPARISON: CT abdomen/ pelvis 01/10/2025 Technique: Multidetector spiral CT of the abdomen and pelvis was performed from lung bases to pubic s ymphysis. Intravenous contrast was administered during this examination. Portal venous imaging was obtained. Axial, coronal and sagittal multiplanar reformats were performed by the technologist on a separate workstation. Radiation Dose : 1. Abdomen/Pelvis: CTDIvol 16.05mGy, DLP 781.7 mGy*cm. CONTRAST: 100 mL Omnipaque 300 Findings: Lung Bases: No acute or significant lung base finding. Normal heart size. No pleural or pericardial effusion. Liver: The liver is normal in size. No focal lesions. Normal hepatic vascular enhancement. Gallbladder and Biliary Tree: Unremarkable Spleen: Unremarkable Pancreas: The pancreas is normal in appearance without focal lesions or abnormal enhancement. Adrenal Glands: Unremarkable Kidneys: No hydronephrosis. Bladder: Unremarkable Bowel: The stomach is grossly normal in appearance. Small bowel and colon are normal in caliber and d istribution. Normal appendix is visualized in the right lower quadrant without findings of appendici tis. Ascites: Absent Lymphadenopathy: No mesenteric, retroperitoneal or periportal lymphadenopathy. Abdominal Wall and Mesentery: Small dermal patch over the right abdomen with minimal underlying subcu taneous stranding. Vasculature: The visualized abdominal aorta is normal in size and caliber. Abdominal and pelvic vess els demonstrate normal enhancement. Pelvic Organs: Unremarkable Musculoskeletal: Mild lumbar levocurvature. No evidence of acute osseous abnormalities. IMPRESSION: No acute abdominal or pelvic findings. Radiation optimization: All CT scans at this facility use at least one of these dose optimization nathan hniques: automated exposure control mA and/or kV adjustment per patient size (includes targeted exam s where dose is matched to clinical indication) or iterative reconstruction.
[2025-01-13 14:41] LABS: Lipase 66 U/L (12-53)
[2025-01-13 14:54] VITALS: BP 123/72; PULSE 68; RESP 16; TEMP 97.8; O2SAT 96
[2025-01-13] MEDS: HYDROcodone-ACET 5/325MG TAB PO ONE (15:03)
--- NOTE | 2025-01-14 06:15 | ECG ---
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
== END 2025-01-13 15:04 | disposition home or self-care (01) ==
LOC: ER 11:25
DX: R10.13 Epigastric pain (principal); F10.21 Alcohol dependence, in remission; F17.210 Nicotine dependence, cigarettes, uncomplicated
CPT/HCPCS: 36415; 74177; 80053; 81001; 83605; 83690; 84484; 85025; 93005; 99285; Q9967

== ENCOUNTER 2025-03-18 18:44 | Emergency (ER) | payer OTHER, MEDICAID ==
[~2025-03-18] VITALS: Ht 172.7 cm; Wt 95.4 kg
--- NOTE | 2025-03-18 19:26 | ED.PDOC ---
SOB-HPI HPI Comments 34-YEAR-OLD MALE PRESENTS IN THE ED CHIEF COMPLAINT C/O FEVER, BODY ACHES, HEADACHE AND ABDL PAIN X 1 DAY C/O N/V. DENIES CHEST PAIN, DIFFICULTY BREATHING, SHORTNESS OF BREATH, DIARRHEA, RECENT TRAVEL OR UNKNOWN NO CONTACT Chief Complaint: Flu like Time Seen by MD: 18:57 Primary Care Provider: CHRISTOPHE HUNT Reviewed notes: Nurses Notes, Medications, Allergies Information Source: Patient Mode of Arrival: Ambulatory Past Medical History PAST MEDICAL HISTORY: Denies Surgical History: Denies all surgeries Family History Family History: Unknown Social History Smoker: Cigarettes, Less Than 1 Pack/Day Alcohol: Denies ETOH Use Drugs: Denies Drug Use Lives In: Home Constitutional: reports: fever, others (BODY ACHES); denies: chills, diaphoresis, fatigue, malaise, sweats, weakness EENTM: reports: throat pain; denies: blurred vision, double vision, ear bleeding, ear discharge, ear drainage, ear pain, ear ringing, eye pain, eye redness, hearing loss, mouth pain, mouth swelling, nasal discharge, nose bleeding, nose congestion, nose pain, photophobia, tearing, throat swelling, voice changes, others Respiratory: denies: cough, hemoptysis, orthopnea, SOB at rest, shortness of breath, SOB with excertion, stridor, wheezing, others Cardiovascular: denies: chest pain, dizzy spells, diaphoresis, Dyspnea on exertion, edema, irregular heart beat, left arm pain, lightheadedness, palpitations, PND, syncope, others Gastrointestinal: reports: nausea, vomiting; denies: abdomen distended, abdominal pain, blood streaked bowels, constipated, diarrhea, dysphagia, difficulty swallowing, hematemesis, melena, poor appetite, poor fluid intake, rectal bleeding, rectal pain, others Genitourinary: denies: burning, dysuria, flank pain, frequency, hematuria, incontinence, penile discharge, penile sore, pain, testicle pain, testicle swelling, urgency, others Neurological: denies: dizziness, fainting, headache, left sided numbness, left sided weakness, numbness, paresthesia, pre-existing deficit, right sided numbness, right sided weakness, seizure, speech problems, tingling, tremors, weakness, others Musculoskeletal: denies: back pain, gout, joint pain, joint swelling, muscle pain, muscle stiffness, neck pain, others Integumetry: denies: bruises, change in color, change in hair/nails, dryness, laceration, lesions, lumps, rash, wounds, others Allergic/Immunocompromised: denies: Difficulty Healing, Frequent Infections, Hives, Itching, others Hematologic/Lymphatic: denies: anemia, blood clots, easy bleeding, easy bruising, swollen glands, others Endocrine: denies: excessive hunger, excessive sweating, excessive thirst, excessive urination, flushing, intolerance to cold, intolerance to heat, unexplained weight gain, unexplained weight loss, others Psychiatric: denies: anxiety, bipolar disorder, depression, hopeless, panic disorder, schizophrenia, sleepless, suicidal, others Physical Exam General Appearance: No Apparent Distress, Normal HEENT: Pharyngeal Erythema, TMs Normal Neck: Full Range of Motion, Non-Tender Respiratory: Lungs Clear, No Respiratory Distress, Normal Breath Sounds Cardiovascular: No Edema, No JVD, No Murmur, No Gallop, Normal Peripheral Pulses, Regular Rate/Rhythm Breast Exam: Deferred Gastrointestinal: No Organomegaly, Non Tender, No Pulsatile Mass, Normal Bowel Sounds, Soft Genitalia: Deferred Pelvic: Deferred Rectal: Deferred Extremities: Normal capillary refill, Normal inspection, Normal range of motion, Non-tender, No pedal edema Musculoskeletal : Apperance: Normal Neurologic: Alert, No Motor Deficits, Normal Affect, Normal Mood, No Sensory Deficits Cerebellar Function: Normal Reflexes: Normal Skin: Dry, Normal Color, Warm Lymphatic: No Adenopathy Was a procedure done? Was a procedure done?: No Differential Dx Differential Diagnosis: Pneumonia, Pneumothorax, Peritonsillar Abscess, Peritonsillar Cellulitis, Pharyngitis, URI X-Ray, Labs, Meds, VS Vital Signs Date Time Temp Pulse Resp B/P (MAP) Pulse Ox O2 Delivery O2 Flow Rate FiO2 03/18/25 19:39 98.8 93 14 126/70 (88) 96 98.8 03/18/25 19:39 93 14 96 Room Air* 0 21 03/18/25 18:48 98.0 101 16 128/70 (89) 97 98.0 Lab Test 03/18/25 19:39 Range/Units Influenza Type A Antigen Negative Negative Influenza Type B Antigen Negative Negative SARS-CoV-2 Antigen (Rapid) Negative NEGATIVE Current Medications Medications (Trade) Dose Ordered Sig/Epifanio Route Start Time Stop Time Status Last Admin Ketorolac Tromethamine (Toradol Injection) 30 mg ONCE ONCE IM 03/18/25 20:00 03/18/25 20:01 DC 03/18/25 20:06 X-Ray, Labs, Meds, VS Comment INFLUENZA AND COVID SWABS NEGATIVE. WE WILL SCRIPT AND HOLD AUGMENTIN AND MEDROL DOSEPAK ADVISED TO START MEDICATIONS IF NO IMPROVEMENT 24-48 HOURS. TYLENOL OR MOTRIN OVER THE COUNTER NEEDED FOR FEVER OR PAIN PER LABEL DOSING INSTRUCTIONS. ADVISED TO REST INCREASE P.O. FLUIDS WITH ELECTROLYTES. TAKE MEDICATIONS PRESCRIBED SIDE EFFECTS DISCUSSED. ADVISED TO FOLLOW UP WITH HIS PCP IN 2-3 DAYS NECESSARY. ER RETURN PRECAUTIONS GIVEN PATIENT INDICATES UNDERSTANDING AGREES WITH DISCHARGE PLAN OF CARE. Time of 1ST Reevaluation: 19:23 Reevaluation 1ST: Unchanged Time of 2ND Reevaluation: 20:50 Reevaluation 2ND: Improved Patient Education/Counseling: Diagnosis, Treatment, Prognosis, Need For Follow Up Family Education/Counseling: No Family Present Departure 1 Departure Time of Disposition: 20:49 Impression: Primary Impression: Upper respiratory infection Qualified Codes: J06.9 - Acute upper respiratory infection, unspecified Disposition: 01 HOME / SELF CARE / HOMELESS Condition: Stable e-Prescriptions Methylprednisolone (Medrol Dosepak) 4 Mg Laz 4 MG PO UD for 6 Days, #21 TAB UAD Prov: LAUREN SPRAGUEP 03/18/25 Amoxicillin & Pot Clavulanate (AUGMENTIN TABLET) 875 Mg Tb 875 MG PO BID for 7 Days, #14 TAB Prov: LAUREN SPRAGUEP 03/18/25 Discharged With: Self Critical Care Note Critical Care Time?: No Stability Stability form required: No Heart Score Heart Score: Heart Score Response (Comments) Value History N/A 0 EKG N/A 0 Age <45 0 Risk Factors N/A 0 Troponin N/A 0 Total 0 LAUREN SPRAGUE Mar 18, 2025 19:26
[2025-03-18 19:39] VITALS: BP 126/70; PULSE 93; RESP 14; TEMP 98.8; O2SAT 96
[2025-03-18] MEDS: KETOROLAC TROMETH 30 MG/ML 1ML VIAL IM ONE (20:06)
[2025-03-18 20:18] LABS: COVID19 ANTIGEN SOFIA FIA NEGATIVE (NEGATIVE); Rapid Influenza A Negative (Negative); Rapid Influenza B Negative (Negative)
[2025-03-18] MEDS ORDERED: METH4PAK PO (20:50)
[2025-03-18] MEDS ORDERED: AUG875T PO (20:50)
== END 2025-03-18 20:45 | disposition home or self-care (01) ==
LOC: ER 18:44
DX: J06.9 Acute upper respiratory infection, unspecified (principal); F17.210 Nicotine dependence, cigarettes, uncomplicated; Z20.822 Contact with and (suspected) exposure to COVID-19
CPT/HCPCS: 36415; 87426; 87804; 96372; 99283; J1885